=== PATIENT | female | born 1950 | race Caucasian/White ===

== ENCOUNTER 2017-10-15 11:45 | Emergency (ER) | payer OTHER, MEDICARE, SELFPAY ==
[2017-10-15 11:49] VITALS: BP 157/69; PULSE 92; RESP 18; TEMP 36.7; O2SAT 98; BMI 31.7
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
[2017-10-15 13:02] VITALS: BP 120/50; PULSE 93; RESP 16; O2SAT 95
--- NOTE | 2017-10-15 13:03 | ED.RN ---
PT WILL WAIT IN THE WAITING FOR DAUGHTER. DAUGHTER IS DRIVING FROM [place].
[2017-10-15] MEDS: Ondansetron ODT 4 MG Tablet PO (13:08)
== END 2017-10-15 13:09 | disposition home or self-care (01) ==
PROVIDERS: Emergency Provider Emergency Medicine
DX: M25.512 Pain in left shoulder (principal); M25.511 Pain in right shoulder; E11.9 Type 2 diabetes mellitus without complications; E66.9 Obesity, unspecified; V43.52XA Car driver injured in collision with other type car in traffic accident, initial encounter; Y93.I9 Activity, other involving external motion; Y92.410 Unspecified street and highway as the place of occurrence of the external cause; Y99.8 Other external cause status
CPT/HCPCS: 99284